=== PATIENT | female | born 1955 | race Caucasian/White ===

== ENCOUNTER 2018-02-18 08:59 | Emergency (ER) | payer OTHER ==
--- NOTE | 2018-02-18 09:27 | EDPHY ---
H & P Time Seen by Provider: 02/18/18 09:22 HPI/ROS: Chief complaint. Memory impairment, vomiting and diarrhea HPI. 8-year-old female presents emergency department with amnesia to events this morning. Apparently she was well last night. She could not remember some events this morning such as going [place] though she seemed to be behaving normally. She had a hard time recalling some of the events over the past 2 weeks. She is now back to normal in oriented to person place and time. She had some nausea vomiting diarrhea this morning. She did not have headache, visual change, chest discomfort, shortness of breath, abdominal pain, focal weakness or paresthesias. No similar symptoms previously. She no longer has any nausea. ROS Constitutional. no fever/chills, no weakness Eyes. no problems with vision ENT. no sore throat, no nasal drainage Cardiovascular. no chest pain Respiratory. no shortness of breath, no cough Abdominal. Nausea vomiting diarrhea this morning with no abdominal . no problems urinating MS. no calf pain/swelling, no neck/back pain, no joint pain Skin. no rash Lymph. no swollen glands Neuro. Memory loss to recent events Past Medical/Surgical History: Cochlear implant, vertigo Social History: , nonsmoker, no alcohol Smoking Status: Never smoked Physical Exam: General Appearance: Alert well-developed female mild distress vital signs are stay Eyes: Pupils equal and round no pallor or injection. ENT, Mouth: Mucous membranes are moist. Respiratory: There are no retractions, lungs are clear to auscultation. Cardiovascular: Regular rate and rhythm. Gastrointestinal: Abdomen is soft and nontender, no masses, bowel sounds normal. Neurological: Awake and alert, sensory and motor exams grossly normal. Speech is normal. Cranial nerves intact. There is no pronator drift. [id number] and zuwr-[id number] are intact bilaterally Skin: Warm and dry, no rashes. Musculoskeletal: Neck is supple nontender. Extremities symmetrical, full range of motion. Psychiatric: Patient is oriented X 3, there is no agitation. Constitutional: Initial Vital Signs Temperature (C) 36.9 C 02/18/18 09:10 Heart Rate 88 02/18/18 09:10 Respiratory Rate 16 02/18/18 09:10 Blood Pressure 130/91 H 02/18/18 09:10 O2 Sat (%) 98 02/18/18 09:10 O2 Delivery Mode Room Air Allergies/Adverse Reactions: No Known Allergies Allergy (Unverified 02/18/18 09:09) Home Medications: Medication Instructions Recorded Cellcept 02/18/18 Lasix 02/18/18 POTASSIUM CL (KCl) 02/18/18 Medical Decision Making - Diagnostics EKG Interpretation: EKG interpreted by me shows normal sinus rhythm with normal interval. Left axis deviation. QRS otherwise normal there is no significant ST elevation or depression. No arrhythmia. The rate is 83 Imaging Results: Imaging Impressions Head CT 02/18/18 09:52 Impression: No obvious acute intracranial abnormalities. Findings and recommendations discussed with Breonna Muhammad at 1128 hours, 2017. Final report concurs with initial preliminary interpretation. Head CTA 02/18/18 09:52 Impression: Normal. Findings and recommendations discussed with BREONNA MUHAMMAD at 1128 hour, 02/18/2018. Final report concurs with initial preliminary interpretation. Neck CTA 02/18/18 09:52 Impression: 1. Nothing acute involving the vessels. 2. Incidental bilateral thyroid nodules. Findings and recommendations discussed with Dr. Breonna Muhammad at 1128 hours on February 18, 2018. Final report concurs with initial preliminary interpretation. Note: All stenoses are calculated using NASCET Criteria. Noncontrast head CT is normal CTA head and neck are normal. CTs are reviewed by me and discussed with Dr. Sandhu Procedures: IV normal saline, monitor Patient cannot have MRI because of her cochlear implant. We discussed use of CT. She expresses understanding and agreement ED Course/Re-evaluation: Re-evaluation at 10:20 p.m. And patient is completely without symptoms. All symptoms have resolved. Re-evaluation again at 11:30 a.m.. Patient has no symptoms. No further nausea vomiting or diarrhea. Completely alert, oriented, conversational. No evidence for continuing neurologic problems Differential Diagnosis: I think is most likely transient global amnesia. I considered TIA, CVA, electrolyte abnormalities. - Data Points Laboratory Results: Laboratory Results 02/18/18 09:25 02/18/18 09:25 02/18/18 02/18/18 02/18/18 09:54 09:25 09:25 WBC 5.81 10^3/uL 10^3/uL (3.80-9.50) RBC 5.19 10^6/uL 10^6/uL (4.18-5.33) Hgb 14.9 g/dL g/dL (12.6-16.3) Hct 45.6 % % (38.0-47.0) MCV 87.9 fL fL (81.5-99.8) MCH 28.7 pg pg (27.9-34.1) MCHC 32.7 g/dL g/dL (32.4-36.7) RDW 13.6 % % (11.5-15.2) Plt Count 349 10^3/uL 10^3/uL (150-400) MPV 9.6 fL fL (8.7-11.7) Neut % (Auto) 53.1 % % (39.3-74.2) Lymph % (Auto) 33.7 % % (15.0-45.0) Avery % (Auto) 9.6 % % (4.5-13.0) Eos % (Auto) 2.4 % % (0.6-7.6) Baso % (Auto) 1.0 % % (0.3-1.7) Nucleat RBC Rel Count 0.0 % % (0.0-0.2) Absolute Neuts (auto) 3.08 10^3/uL 10^3/uL (1.70-6.50) Absolute Lymphs (auto) 1.96 10^3/uL 10^3/uL (1.00-3.00) Absolute Monos (auto) 0.56 10^3/uL 10^3/uL (0.30-0.80) Absolute Eos (auto) 0.14 10^3/uL 10^3/uL (0.03-0.40) Absolute Basos (auto) 0.06 10^3/uL 10^3/uL (0.02-0.10) Absolute Nucleated RBC 0.00 10^3/uL 10^3/uL (0-0.01) Immature Gran % 0.2 % % (0.0-1.1) Immature Gran # 0.01 10^3/uL 10^3/uL (0.00-0.10) Sodium 144 mEq/L mEq/L (135-145) Potassium 3.9 mEq/L mEq/L (3.3-5.0) Chloride 108 mEq/L mEq/L (97-110) Carbon Dioxide 23 mEq/l mEq/l (22-31) Anion Gap 13 mEq/L mEq/L (8-16) BUN 15 mg/dL mg/dL (7-23) Creatinine 0.8 mg/dL mg/dL (0.6-1.0) Estimated GFR > 60 Glucose 110 mg/dL H mg/dL (70-100) Calcium 9.4 mg/dL mg/dL (8.5-10.4) POC Troponin I 0.00 ng/mL ng/mL (0.00-0.08) Medications Given: Discontinued Medications Sodium Chloride (Ns) 1,000 mls @ 0 mls/hr IV EDNOW ONE; Wide Open PRN Reason: Protocol Stop: 02/18/18 09:38 Last Admin: 02/18/18 09:49 Dose: 1,000 mls Point of Care Test Results: Chemistry 02/18/18 09:54 POC Troponin I 0.00 ng/mL ng/mL (0.00-0.08) Departure - Departure Disposition: Home, Routine, Self-Care Clinical Impression: Transient global amnesia Condition: Good Instructions: Transient Global Amnesia (ED) Additional Instructions: Normal activity, eating and drinking. Return for any further symptoms. Make follow-up appointment with Neurology for further evaluation Referrals: NONE *PRIMARY CARE P,. [Primary Care Provider] - As per Instructions Mane Serrano MD [Medical Doctor] - As per Instructions
[2018-02-18] MEDS ORDERED: NS 1,000 ML IV ONE (09:37)
--- NOTE | 2018-02-18 09:40 | CPEKG ---
Heart Rate: 83 RR Interval: 723 P-R Interval: 184 QRSD Interval: 96 QT Interval: 388 QTC Interval: 456 P [place]: 58 QRS [place]: -18 T Wave [place]: 40 EKG Severity - OTHERWISE NORMAL ECG - EKG Impression: SINUS RHYTHM EKG Impression: BORDERLINE LEFT AXIS DEVIATION Electronically Signed By: Ramesh Muhammad 18-Feb-2018 09:40:56
[2018-02-18 09:44] LABS: PLATELET COUNT 349 10^3/uL (150-400)
[2018-02-18] MEDS ORDERED: IOPAMIDOL (ISOVUE 370) 100 ML BTL IV ONE (10:12)
[2018-02-18 11:55] VITALS: BP 132/76
== END 2018-02-18 11:53 | disposition home or self-care (01) ==
DX: G45.4 Transient global amnesia (principal); E86.9 Volume depletion, unspecified
CPT/HCPCS: 84484-PO; Q9967

== ENCOUNTER → 2018-07-23 | Outpatient (CLI) | payer OTHER | LOC: FIMAGING 10:49 | PROVIDERS: ATTEND Family Medicine | DX: M25.561 Pain in right knee (principal); M17.11 Unilateral primary osteoarthritis, right knee ==

== ENCOUNTER → 2018-09-08 | Outpatient (CLI) | payer OTHER | LOC: FIMAGING 09:57 | DX: M85.89 Other specified disorders of bone density and structure, multiple sites (principal) ==